=== PATIENT | male | born 1965 | race Caucasian/White ===

== ENCOUNTER 2020-09-22 12:37 | Emergency (ER) | payer MEDICARE, MEDICAID, SELFPAY ==
[2020-09-22 12:40] VITALS: BP 146/85; PULSE 61; RESP 18; TEMP 36.3; O2SAT 99; BMI 28.7
--- NOTE | 2020-09-22 12:54 | ECG_ITS ---
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 Measurements Intervals [place] Rate: 62 P: 9 PA: 124 QRS: 62 QRSD: 99 T: 51 QT: 456 QTc: 464 Interpretive Statements SINUS RHYTHM WITH SINUS ARRHYTHMIA PROLONGED QT INTERVAL Compared to ECG 03/28/2015 02:14:58 Prolonged QT interval now present Electronically Signed On 09-22-2020 18:44:39 GARMENT SUPERVISOR by Rosario Dove M.D. [email or web address] [facility] [email or web address]/store/NU/[id number] f
--- NOTE | 2020-09-22 12:54 | XRR_ITS ---
PROCEDURE INFORMATION: Exam: XR Chest, 1 View Exam date and time: 09/22/2020 1:10 PM Age: 54 years old Clinical indication: Cough and dyspnea and shortness of breath; Chest pain; Type not specified; Prior surgery; Surgery type: Back; Additional info: Dyspnea/cough TECHNIQUE: Imaging protocol: XR of the chest Views: 1 view. COMPARISON: CT chest wo con [id number] 08/24/2019 1:29 PM FINDINGS: Lungs: Hyperinflation and interstitial prominence. Pleural space: No pleural effusion. Heart/Mediastinum: No cardiomegaly. Bones/joints: Degenerative change . XR/XR chest 1V portable [id number] IMPRESSION: Hyperinflation and interstitial prominence.
--- NOTE | 2020-09-22 12:54 | CT_ITS ---
WS: [id number] CT ABDOMEN AND PELVIS WITH CONTRAST HISTORY: Right-sided abdominal pain and hemoptysis. TECHNIQUE: Imaging performed of the abdomen and pelvis with IV contrast. Single phase imaging of the abdomen. Coronal and sagittal reformats are submitted. All CT scans at [facility] use at least one of these dose optimization techniques: automated exposure control; mA and/or kV adjustment per patient size (includes targeted exams where dose is matched to clinical indication); or iterativ e reconstruction. IV CONTRAST: Omnipaque 300; 95 mL IV. Oral contrast: No DLP: 753.22 mGy.cm COMPARISON: 08/24/2019 Lower thorax: Lung bases are clear. Heart is normal size. Small hiatal hernia. Liver/biliary system: Normal size with no intrahepatic dilatation. Gallbladder: Normal. No gallstones or wall thickening. No pericholecystic fluid. Pancreas: Normal. Spleen: Normal. Adrenal glands: Normal. Right kidney: Normal. Left kidney: Normal. Aorta: Normal. Lymphadenopathy: None. Free fluid: None. GI tract: The appendix only partially visualized and normal. There is no evidence for appendicitis or acute inflammation. Mild constipation in the RIGHT colon. Numerous diverticula in the sigmoid colon. By CT no definite evidence for an acute diverticulitis. No free fluid. No abscess. There is some orestes y mild mucosal edema in the transverse colon beginning at the hepatic flexure. Abdominal wall: Unremarkable abdominal wall. No hernia. Pelvis: Normal. Bones: Severe degenerative disc disease at L4-5. No osteoblastic or osteolytic bone disease. Benign b [place] LEFT femur and LEFT ilium. CT/CT abdomen pelvis w con* [id number] IMPRESSION: 1. Mild mucosal thickening involving the transverse colon may represent early infectious colitis. 2. Sigmoid diverticulosis without evidence for acute diverticulitis. 3. The appendix is not completely visualized but there are no signs of appendi citis.
[2020-09-22 13:16] VITALS: BP 146/119; PULSE 69; RESP 18; O2SAT 100
[2020-09-22] MEDS: ondansetron 2 mg/ML SDV 2 mL 4 MG IVP (13:27)
[2020-09-22 13:32] LABS: Basophils % 0.3 %; Hematocrit 46.1 % (42.0-52.0); Hemoglobin 15.6 g/dL (11.7-16.6); Lymphocytes # 1.5 10^3/uL (0.8-4.8); Mean Corpuscular HGB Conc 33.8 g/dL (30.0-36.0); Mean Corpuscular Hemoglobin 27.9 pg (28.0-34.0); Mean Corpuscular Volume 82.5 fL (80-94); Mean Platelet Volume 10.9 fL (7.4-10.4); Monocytes # 0.6 10^3/uL (0.2-0.9); Monocytes % 5.3 %; Neutrophils # 9.35 10^3/uL (1.8-7.7); Neutrophils % 81.1 %; Nucleated Red Blood Cells % 0 %; Platelet Count 325 10^3/cmm (130-400); Red Blood Count 5.59 10^6/uL (4.1-5.3); Red Cell Distribution Width 14.6 % (12.1-15.1); White Blood Count 11.5 10^3/uL (4.0-10.0)
[2020-09-22 13:42] LABS: Alanine Aminotransferase 20 U/L (0-41); Albumin Level 4.9 g/dL (3.5-5.2); Alkaline Phosphatase 139 IU/L (40-130); Anion Gap 25.6 (5-19); Aspartate Amino Transferase 27 U/L (0-40); Blood Urea Nitrogen 20 mg/dL (6-20); Calcium 10.2 mg/dL (8.5-10.5); Carbon Dioxide 21 mmol/L (22-29); Chloride 96 mmol/L (98-107); Creatinine Clr Calc Pharmacy 88.9858; Glomerular Filtration Rate 70.3 mL/min (90-130); Glucose 164 mg/dL (65-115); Lipase 22 U/L (13-60); Magnesium 2.1 mg/dL (1.7-2.3); Osmolality Calculated 294 mOsm/kg (285-295); Potassium 3.6 mmol/L (3.5-5.1); Sodium 139 mmol/L (136-145); Total Bilirubin 0.9 mg/dL (0.15-1.2); Total Protein 7.9 g/dL (6.6-8.7); Troponin(5th) Baseline 8 ng/L (0-15)
[2020-09-22 13:56] LABS: Alcohol Level < 10 mg/dL (0-10)
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
[2020-09-22] MEDS: iohexol 300 mg/mL 100 mL Btl IV (14:42)
[2020-09-22 14:46] VITALS: BP 137/90; PULSE 73; RESP 19; O2SAT 100
--- NOTE | 2020-09-22 14:54 | ECG_ITS ---
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 Measurements Intervals [place] Rate: 61 P: 27 VT: 134 QRS: 48 QRSD: 97 T: 39 QT: 468 QTc: 473 Interpretive Statements SINUS RHYTHM WITH MARKED SINUS ARRHYTHMIA PROLONGED QT INTERVAL Compared to ECG 09/22/2020 13:03:46 No significant changes Electronically Signed On 09-22-2020 18:54:57 MAINTENANCE HELPER UTILITY ENGINEER by Rosario Dove M.D. [email or web address] [email or web address] [email or web address]/store/[id number]
[2020-09-22 15:00] VITALS: BP 155/81; PULSE 83; RESP 18; O2SAT 100
[2020-09-22] MEDS: promethazine 25 mg/mL SDV 1 mL IM (15:31)
[2020-09-22] MEDS: sodium chloride 0.9% 1,000 ML 999 ML IV (15:32)
[2020-09-22 16:13] LABS: Troponin 5 2HR 7.73 ng/L (0-15)
[2020-09-22 16:20] LABS: Troponin 5 2HR Delta -0.27 ABS# (0-10)
[2020-09-22 17:00] VITALS: BP 134/78; PULSE 66; RESP 18; O2SAT 100
[2020-09-22 17:35] VITALS: BP 139/70; PULSE 71; RESP 18; O2SAT 100
--- NOTE | 2020-09-22 17:39 | PC.NURSE ---
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
--- NOTE | 2020-09-23 11:10 | DCPLANNER ---
manager long term care had message to speak with patient about getting a primary care physician appointment. manager long term care spoke with patient and he stated that he was to have a follow up appointment with [facility]. manager long term care called [facility], spoke with Mary, a follow up appointment was scheduled for September at 2:[address] Dove. manager long term care called patient and gave patient the appointment information.
--- NOTE | 2020-10-09 14:04 | DCPLANNER ---
Patient had a follow up appointment scheduled for 10.02.20 - patient did attend appointment.
== END 2020-09-22 17:35 | disposition home or self-care (01) ==
PROVIDERS: Emergency Provider Family Medicine; Family Provider Family Medicine; PCP Family Medicine
DX: K29.20 Alcoholic gastritis without bleeding (principal); R94.31 Abnormal electrocardiogram [ECG] [EKG]; Z87.891 Personal history of nicotine dependence; Z79.899 Other long term (current) drug therapy
CPT/HCPCS: 12345; 36415; 71045; 74177; 80053; 80307; 83690; 83735; 84484; 85025; 93005; 96361; 96372; 96374; 99283; 99284; J2405; J2550; J7030; Q9967

== ENCOUNTER 2020-10-29 06:37 | Outpatient (CLI) | payer MEDICARE, MEDICAID, SELFPAY ==
--- NOTE | 2020-10-29 07:15 | US_ITS ---
WS: [id number] ULTRASOUND ABDOMEN LIMITED CLINICAL INFORMATION: RUQ PAIN COMPARISON: None. FINDINGS: Liver Size: Normal. Craniocaudal length: 16.0 cm. Echogenicity: Coarse Surface nodularity: None. Mass (size and location): None. Bile ducts Intrahepatic ducts: Normal. Common bile duct diameter: 0.3 cm. Gallbladder Normal. Gallstones: None. Gallbladder sludge: None. Gallbladder wall thickening: None. Pericholecystic fluid: None. Sonographic Shah sign: Absent. Pancreas Normal as visualized. Right kidney: Normal. Hydronephrosis: None. Size: 10.5 cm x 5.4 cm x 4.6 cm. Abdominal aorta and IVC Visualized portions are normal. Ascites: None. US/US gall bladder [id number] IMPRESSION: Mild diffuse fatty infiltration of the liver. Otherwise normal abdominal ultras ound.
== END 2020-10-29 06:38 | disposition home or self-care (01) ==
LOC: US 06:38
PROVIDERS: PCP Family Medicine; Visit Provider Surgery
DX: R10.11 Right upper quadrant pain (principal); K76.0 Fatty (change of) liver, not elsewhere classified
CPT/HCPCS: 76705

== ENCOUNTER 2021-01-12 11:31 | Outpatient (CLI) | payer MEDICARE, MEDICAID, SELFPAY ==
[2021-01-12 11:47] VITALS: BMI 28.7
--- NOTE | 2021-01-12 11:48 | ECG_ITS ---
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 Interpretive Statements NAME OF STUDY: TREADMILL STRESS ECHOCARDIOGRAM INDICATION: Chest Pain, PROCEDURE: At the baseline, the patient's blood pressure was 131/83 with a heart rate of 83. The baseline electrocardiogram showed normal sinus rhythm with normal ST-Ts. Poor R wave progression. The patient exercised for 11 minutes and 1 seconds on a standard Eduardo protocol. Patient attained a maximum heart rate of 143 beats per minute( 85 % of the maximum predicted heart rate) with a blood pressure at the peak exercise of 210/80 mm Hg. The EKG at the peak exercise revealed no significant changes. Patient did not have any chest pain or any significant EKG changes with the exercise During the recovery phase, there were no new changes. Blood pressure at the end of the recovery phase was 141/64 mm Hg with a heart rate of 89 per minute. Echocardiographic pictures were taken at the baseline, immediately following the peak exercise and during the recovery phase. CONCLUSION: 1. Normal EKG response to treadmill exercise 2. No exercise-induced chest pain or cardiac arrhythmia 3. Good exercise tolerance, attained a maximum of 13.5 METs 4. Please see separate report for the echocardiographic response to exercise. Electronically Signed On 01-15-2021 18:40:09 CDT by Rosario Dove M.D. [email or web address] Switch [id number]
[2021-01-12 12:25] VITALS: BP 141/64; PULSE 89
--- NOTE | 2021-01-12 12:45 | USCV_ITS ---
Kin Dove Age: 55 Gender: M : 1965 Exam Date: 01/12/2021 12:07 Ordering Phys: Rosario Dove MD ([email or web address]) Technologist: SEFERINO Exam Location: [facility] [place] Indication: cp Rhythm: Sinus Patient History: Cardiac Medications: Medications in past 24 hours: Contrast: Stress Results Protocol: Eduardo Total dose(mL): Exercise Duration (min:sec): 11:01 METS: 13.5 Resting HR: 83 Resting BP: 131 / 83 Peak HR: 143 Peak BP: 210 / 94 Max Predicted HR: 167 86 % Max Predicted HR Target HR: 142 Double Product: 71178 Stress Summary: The patient's target heart rate was achieved BP Response: Normal Reason for Termination: Test terminated after reaching target heart rate (85% max predicted) Cardiac Symptoms: Short of Breath ECG Analysis Resting ECG: Please see separate report Stress ECG: Please see separate report Arrhythmia: Please see separate report MEASUREMENTS (Male/Female) Normal Values FINDINGS The baseline echocardiogram will normal LV size and ejection fraction. Segmental wall motion analysis revealed no gross wall motion abnormalities. No intracardiac masses. No pericardial effusion. The peak exercise, there is good augmentation of all the segments with no exercise-induced wall motion normalities. During the recovery phase, there was no new changes. CONCLUSIONS 1. Normal echocardiographic response to treadmill exercise 2. No exercise-induced chest pain or cardiac arrhythmia. 3. No evidence of any coronary ischemia, based on the above findings Dr Rosario Dove MD [facility] (Electronically Signed) Final Date: 12 Jan 2021 20:19 S
== END 2021-01-12 11:32 | disposition home or self-care (01) ==
LOC: CDL 11:34
PROVIDERS: PCP Family Medicine; Visit Provider Internal Medicine Cardiovascular Disease
DX: R94.31 Abnormal electrocardiogram [ECG] [EKG] (principal)
CPT/HCPCS: 93017; 93350

== ENCOUNTER → 2023-01-03 08:39 | Outpatient (BNVA) | payer MEDICARE, MEDICAID, SELFPAY | PROVIDERS: PCP Family Medicine; Referring Provider Nurse Practitioner Family; Visit Provider Student in an Organized Health Care Education/Training Program | DX: M18.0 Bilateral primary osteoarthritis of first carpometacarpal joints (principal); S63.649A Sprain of metacarpophalangeal joint of unspecified thumb, initial encounter; X50.1XXA Overexertion from prolonged static or awkward postures, initial encounter | CPT/HCPCS: 20610; 73130; J3301; J3490 ==

== ENCOUNTER 2023-01-03 13:29 | Outpatient (CLI) | payer MEDICARE, MEDICAID, SELFPAY | END 2023-01-03 13:30 | disposition home or self-care (01) | LOC: SPT 13:29 | PROVIDERS: PCP Family Medicine; Visit Provider Student in an Organized Health Care Education/Training Program | DX: Z46.89 Encounter for fitting and adjustment of other specified devices (principal); M18.0 Bilateral primary osteoarthritis of first carpometacarpal joints | CPT/HCPCS: 97760; 99204; L3924 ==

== ENCOUNTER → 2023-02-21 08:24 | Outpatient (BNVA) | payer MEDICARE, MEDICAID, SELFPAY | PROVIDERS: PCP Family Medicine; Visit Provider Student in an Organized Health Care Education/Training Program | DX: M18.0 Bilateral primary osteoarthritis of first carpometacarpal joints (principal); S63.649A Sprain of metacarpophalangeal joint of unspecified thumb, initial encounter; X58.XXXA Exposure to other specified factors, initial encounter | CPT/HCPCS: 99213 ==

== ENCOUNTER → 2023-03-23 10:41 | Outpatient (BNVA) | payer MEDICARE, MEDICAID, SELFPAY | PROVIDERS: PCP Family Medicine; Referring Provider Registered Nurse; Visit Provider Specialist | DX: G24.3 Spasmodic torticollis (principal); R20.0 Anesthesia of skin; R20.2 Paresthesia of skin; Z98.1 Arthrodesis status; M43.12 Spondylolisthesis, cervical region | CPT/HCPCS: 99204 ==

== ENCOUNTER → 2023-04-07 09:23 | Outpatient (BNVA) | payer MEDICARE, MEDICAID, SELFPAY | PROVIDERS: PCP Family Medicine; Visit Provider Student in an Organized Health Care Education/Training Program | DX: M18.0 Bilateral primary osteoarthritis of first carpometacarpal joints (principal) | CPT/HCPCS: 20600; 99213; J3301; J3490 ==

== ENCOUNTER 2023-04-14 13:24 | Emergency (ER) | payer MEDICARE, MEDICAID, SELFPAY ==
--- NOTE | 2023-04-14 13:29 | XRR_ITS ---
PROCEDURE INFORMATION: Exam: XR Chest Exam date and time: 04/14/2023 1:37 PM Age: 57 years old Clinical indication: Pain; Other: Unspecified; Additional info: Cp TECHNIQUE: Imaging protocol: Radiologic exam of the chest. Views: 1 view. COMPARISON: CR XR chest 1V portable [id number] 09/22/2020 1:05 PM, chest x-ray October [address] chest August 2019 FINDINGS: Lungs: 2 cm oval-shaped shaped density projecting over the left mid lung zone and in between the posterior aspect of the left 6th and 7th ribs unchanged from February 2018 and shown on earlier CT to be secondary to overlying bony exostosis arising from the inferior aspect left 6 rib.. No consolidation. Pleural spaces: Unremarkable. No pleural effusion. No pneumothorax. Heart/Mediastinum: Unremarkable. No cardiomegaly. Bones/joints: Otherwise unremarkable. No acute bony abnormalities. XR/XR chest 1V portable [id number] IMPRESSION: Stable chest. No active disease.
--- NOTE | 2023-04-14 13:30 | ECG_ITS ---
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 Measurements Intervals [place] Rate: 88 P: 46 KS: 128 QRS: 35 QRSD: 95 T: 59 QT: 345 QTc: 418 Interpretive Statements SINUS RHYTHM POSSIBLE LEFT ATRIAL ENLARGEMENT [-0.1mV P-WAVE IN V1/V2] Compared to ECG 09/22/2020 16:18:00 Sinus arrhythmia no longer present Prolonged QT interval no longer present Electronically Signed On 04-15-2023 9:26:31 CDT by John Vásquez M.D. [id number]
[2023-04-14 13:33] VITALS: BP 151/92; PULSE 97; RESP 17; O2SAT 97
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
[2023-04-14 14:47] LABS: Basophils % 0.4 %; Eosinophils # 0.1 10^3/uL (0.0-0.8); Eosinophils % 0.6 %; Hematocrit 47.5 % (42.0-52.0); Hemoglobin 16.2 g/dL (11.7-16.6); Lymphocytes # 2.2 10^3/uL (0.8-4.8); Lymphocytes % 22.2 %; Mean Corpuscular HGB Conc 34.1 g/dL (30.0-36.0); Mean Platelet Volume 9.8 fL (7.4-10.4); Monocytes % 10.4 %; Neutrophils # 6.47 10^3/uL (1.8-7.7); Neutrophils % 66.1 %; Nucleated Red Blood Cells % 0 %; Platelet Count 333 10^3/cmm (130-400); Red Blood Count 5.59 10^6/uL (4.1-5.3); Red Cell Distribution Width 14.8 % (12.1-15.1); White Blood Count 9.8 10^3/uL (4.0-10.0)
[2023-04-14 14:58] LABS: INR 1.03 (0.8-1.2)
[2023-04-14 15:02] LABS: Troponin(5th) Baseline 9 ng/L (0-15)
[2023-04-14 15:03] LABS: Alanine Aminotransferase 18 U/L (0-41); Albumin Level 4.9 g/dL (3.5-5.2); Alkaline Phosphatase 122 U/L (40-130); Aspartate Amino Transferase 26 U/L (0-40); Blood Urea Nitrogen 20 mg/dL (6-20); Calcium 9.4 mg/dL (8.5-10.5); Carbon Dioxide 19 mmol/L (22-29); Chloride 99 mmol/L (98-107); Globulin 2.7 g/dL (1.3-4.6); Glomerular Filtration Rate 77.6 mL/min (90-130); Glucose 63 mg/dL (65-115); Osmolality Calculated 281 mOsm/kg (285-295); Sodium 135 mmol/L (136-145); Total Bilirubin 0.9 mg/dL (0.15-1.2); Total Protein 7.6 g/dL (6.6-8.7)
[2023-04-14 15:04] VITALS: BP 122/95; PULSE 95; RESP 16; O2SAT 97
[2023-04-14 15:07] LABS: Anion Gap 21.6 (5-19); Potassium 4.6 mmol/L (3.5-5.1)
--- NOTE | 2023-04-14 15:30 | ECG_ITS ---
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 Measurements Intervals [place] Rate: 93 P: 17 VT: 108 QRS: 20 QRSD: 92 T: 41 QT: 343 QTc: 428 Interpretive Statements SINUS RHYTHM WITH SHORT VT INTERVAL Compared to ECG 04/14/2023 13:40:09 Short VT interval now present Electronically Signed On 04-15-2023 9:30:01 CDT by John Vásquez M.D. [id number]
[2023-04-14 16:39] LABS: Troponin 5 2HR 8.88 ng/L (0-15); Troponin 5 2HR Delta -0.12 ABS# (0-10)
--- NOTE | 2023-04-14 17:10 | PC.NURSE ---
fsbs is 115
[2023-04-14 17:11] LABS: Glucose Point of Care 115 mg/dL (70-110)
--- NOTE | 2023-04-15 07:45 | DCPLANNER ---
Addendum entered by Emma Miller 04/21/23 10:33: Patient attended follow up appointment scheduled with [facility] care Addendum entered by Emma Miller 04/20/23 10:45: Patient has a follow up appointment scheduled for Tuesday, April 20, 2023 at 1:[address] Solis at [facility]. Original Note: site manager had message to schedule a follow up appointment for patient with cardiology. site manager sent patients information to the front office staff at [facility]. Patients information will be printed and reviewed. Clinic will call patient with appointment information.
== END 2023-04-14 17:17 | disposition home or self-care (01) ==
PROVIDERS: Emergency Medicine; Emergency Provider Nurse Practitioner Family; PCP Family Medicine
DX: R07.9 Chest pain, unspecified (principal); Z87.891 Personal history of nicotine dependence
CPT/HCPCS: 36415; 36416; 71045; 80053; 82962; 84484; 85025; 85610; 93005; 99285

== ENCOUNTER → 2023-04-20 12:23 | Outpatient (BNVA) | payer MEDICARE, MEDICAID, SELFPAY | PROVIDERS: PCP Family Medicine; Visit Provider Internal Medicine Cardiovascular Disease | DX: R07.9 Chest pain, unspecified (principal); Z98.890 Other specified postprocedural states; Z87.891 Personal history of nicotine dependence | CPT/HCPCS: 99213 ==

== ENCOUNTER 2023-05-11 12:28 | Outpatient (CLI) | payer MEDICARE, MEDICAID, SELFPAY ==
--- NOTE | 2023-05-11 | ECG_ITS ---
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 Interpretive Statements NAME OF STUDY: TREADMILL STRESS ECHOCARDIOGRAM INDICATION: Chest Pain, PROCEDURE: At the baseline, the patient's blood pressure was 124/84 with a heart rate of 78. The baseline electrocardiogram showed normal sinus rhythm with normal ST-Ts.. The patient exercised for 8 minutes on a standard Eduardo protocol. Patient attained a maximum heart rate of 143 beats per minute(86% of the maximum predicted heart rate) with a blood pressure at the peak exercise of 166/93 mm Hg. The EKG at the peak exercise revealed no significant changes. Patient did not have any chest pain or any significant cardiac arrhythmias with the exercise During the recovery phase, there were no new changes. Blood pressure at the end of the recovery phase was 134/76 mm Hg with a heart rate of 84 per minute. CONCLUSION: 1. Normal EKG response to treadmill exercise 2. No exercise-induced chest pain or cardiac arrhythmia 3. Slightly impaired exercise tolerance, attained a maximum of seven-point METs Electronically Signed On 05-13-2023 10:00:27 CDT by Rosario Dove M.D. [id number]
[2023-05-11 12:59] VITALS: BMI 27.1
--- NOTE | 2023-05-11 13:03 | USCV_ITS ---
Stress Echo Kin Dove Age: 57 Gender: M : 1965 Exam Date: 05/11/2023 13:20 Ordering Phys: Bradley Solis MD ([email or web address]) Technologist: Rene Coker Exam Location: [facility] [place] Indication: cp Rhythm: Sinus Patient History: cp Cardiac Medications: Medications in past 24 hours: Contrast: Stress Results Protocol: Eduardo Total dose(mL): Exercise Duration (min:sec): 8:00 METS: 10.2 Resting HR: 70 Resting BP: 124 / 84 Peak HR: 143 Peak BP: 181 / 93 Max Predicted HR: 165 87 % Max Predicted HR Target HR: 140 Double Product: 10688 Stress Summary: The patient's target heart rate was achieved BP Response: Normal Reason for Termination: Reached target heart rate or work-load Cardiac Symptoms: None ECG Analysis Resting ECG: Please see separate report Stress ECG: Please see separate report Arrhythmia: Please see separate report MEASUREMENTS (Male/Female) Normal Values FINDINGS Baseline echocardiogram revealed normal LV size and ejection fraction. Segmental wall motion analysis revealed no gross wall motion normalities. No pericardial effusion. Minimally thickened anterior mitral leaflet. Aortic root appeared to be of normal size. With the peak exercise, there was good augmentation of all the segments with no exercise-induced wall motion normalities. During the recovery phase, there is no new changes CONCLUSIONS 1. Normal echocardiographic response to treadmill exercise. 2. Low probability for coronary ischemia, based on the above findings 3. For the EKG response to exercise, please see separate report Dr Rosario Dove MD [facility] (Electronically Signed) Final Date: 12 May 2023 08:55 S
[2023-05-11 13:38] VITALS: BP 135/76; PULSE 80
== END 2023-05-11 12:29 | disposition home or self-care (01) ==
LOC: CDL 12:30
PROVIDERS: PCP Family Medicine; Visit Provider Internal Medicine Cardiovascular Disease
DX: R07.9 Chest pain, unspecified (principal)
CPT/HCPCS: 93017; 93350

== ENCOUNTER → 2023-07-14 07:35 | Outpatient (BNVA) | payer MEDICARE, MEDICAID, SELFPAY | PROVIDERS: PCP Family Medicine; Visit Provider Student in an Organized Health Care Education/Training Program | DX: M18.0 Bilateral primary osteoarthritis of first carpometacarpal joints (principal) | CPT/HCPCS: 99212; 99213 ==

== ENCOUNTER → 2023-09-22 13:41 | Outpatient (BNVA) | payer MEDICARE, MEDICAID, SELFPAY | PROVIDERS: PCP Family Medicine; Visit Provider Physician Assistant | DX: G56.21 Lesion of ulnar nerve, right upper limb (principal); G56.03 Carpal tunnel syndrome, bilateral upper limbs; M18.0 Bilateral primary osteoarthritis of first carpometacarpal joints | CPT/HCPCS: 20600; 99213; J3301; J3490 ==

== ENCOUNTER 2023-11-30 10:28 | Emergency (ER) | payer MEDICARE, MEDICAID, SELFPAY ==
[2023-11-30 10:45] VITALS: BP 141/89; PULSE 76; TEMP 36.9; O2SAT 99; BMI 25.1
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
[2023-11-30 11:29] VITALS: BP 128/87; PULSE 76; RESP 14; O2SAT 98
== END 2023-11-30 11:30 | disposition home or self-care (01) ==
PROVIDERS: Emergency Provider Emergency Medicine; PCP Family Medicine
DX: L02.31 Cutaneous abscess of buttock (principal); Z87.891 Personal history of nicotine dependence
CPT/HCPCS: 10060; 99283

== ENCOUNTER → 2024-01-19 13:49 | Outpatient (BNVA) | payer MEDICARE, MEDICAID, SELFPAY | PROVIDERS: PCP Family Medicine; Visit Provider Student in an Organized Health Care Education/Training Program | DX: M18.0 Bilateral primary osteoarthritis of first carpometacarpal joints (principal) | CPT/HCPCS: 99213 ==

== ENCOUNTER → 2024-04-16 10:29 | Outpatient (BNVA) | payer MEDICARE, MEDICAID, SELFPAY | PROVIDERS: PCP Family Medicine; Visit Provider Surgery | DX: K21.9 Gastro-esophageal reflux disease without esophagitis (principal); Z86.010 Personal history of colon polyps; K92.2 Gastrointestinal hemorrhage, unspecified | CPT/HCPCS: 99204 ==

== ENCOUNTER → 2024-05-01 07:58 | Outpatient (BNVA) | payer MEDICARE, SELFPAY | PROVIDERS: PCP Family Medicine; Visit Provider Student in an Organized Health Care Education/Training Program | DX: M18.0 Bilateral primary osteoarthritis of first carpometacarpal joints (principal) | CPT/HCPCS: 20600; 99213; J3301; J3490 ==

== ENCOUNTER 2024-06-06 08:38 | Day surgery (SDC) | payer MEDICARE, SELFPAY ==
[2024-06-06 09:00] VITALS: BP 125/101; PULSE 108; RESP 18; TEMP 36.1; O2SAT 98
[2024-06-06 09:11] VITALS: BMI 25.1
[2024-06-06] MEDS: sodium chloride 0.9% 1,000 ML 30 ML IV (09:14)
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
[2024-06-06 10:59] VITALS: BP 102/76; PULSE 96; RESP 18; TEMP 36.5; O2SAT 94
[2024-06-06 11:04] VITALS: BP 107/82; PULSE 92; RESP 18; O2SAT 97
--- NOTE | 2024-06-06 11:13 | ANE.PACU2 ---
Inpatient post-anesthesia follow up: Airway intact: Yes Vital signs: Temperature 97.7 F Pulse Rate 92 Respiratory Rate 18 Blood Pressure 107/82 Pulse Oximetry 97 Oxygen Delivery Me thod Room Air Oxygen Flow Rate Fraction of Inspir ed Oxygen Hydration adequate: Yes Nausea and vomiting: No Pain level: 1 Mental status: Baseline
[2024-06-06 11:14] VITALS: BP 104/79; PULSE 89; RESP 18; O2SAT 95
== END 2024-06-06 11:35 | disposition home or self-care (01) ==
PROVIDERS: PCP Family Medicine; Visit Provider Surgery
PROC: 0DJ08ZZ Inspection of Upper Intestinal Tract, Via Natural or Artificial Opening Endoscopic (ICD-10-PCS; CPT 43235; principal; 2024-06-06 10:00)
PROC: 0DJD8ZZ Inspection of Lower Intestinal Tract, Via Natural or Artificial Opening Endoscopic (ICD-10-PCS; CPT 45378; 2024-06-06 10:00)
DX: K92.2 Gastrointestinal hemorrhage, unspecified (principal); K20.90 Esophagitis, unspecified without bleeding; D12.2 Benign neoplasm of ascending colon; K44.9 Diaphragmatic hernia without obstruction or gangrene; K64.8 Other hemorrhoids; K21.9 Gastro-esophageal reflux disease without esophagitis; Z86.0100 Personal history of colon polyps, unspecified; F41.9 Anxiety disorder, unspecified; Z87.891 Personal history of nicotine dependence; J44.9 Chronic obstructive pulmonary disease, unspecified
CPT/HCPCS: 43239; 45385; 88305; J2704; J7030

== ENCOUNTER → 2024-06-22 10:46 | Outpatient (BNVA) | payer MEDICARE, SELFPAY | PROVIDERS: PCP Family Medicine; Visit Provider Surgery | DX: Z09 Encounter for follow-up examination after completed treatment for conditions other than malignant neoplasm (principal); K22.70 Barrett's esophagus without dysplasia; Q40.2 Other specified congenital malformations of stomach; K21.9 Gastro-esophageal reflux disease without esophagitis; K92.2 Gastrointestinal hemorrhage, unspecified; D37.4 Neoplasm of uncertain behavior of colon | CPT/HCPCS: 99214 ==

== ENCOUNTER → 2024-08-07 08:00 | Outpatient (BNVA) | payer MEDICARE, SELFPAY | PROVIDERS: PCP Family Medicine; Visit Provider Student in an Organized Health Care Education/Training Program | DX: M18.0 Bilateral primary osteoarthritis of first carpometacarpal joints (principal); M06.00 Rheumatoid arthritis without rheumatoid factor, unspecified site; Z79.899 Other long term (current) drug therapy; Z98.1 Arthrodesis status | CPT/HCPCS: 20600; 36415; 80076; 82306; 82565; 83520; 85025; 85651; 86140; 86200; 86431; 99204; 99213; J3301; J3490 ==

== ENCOUNTER → 2024-12-19 08:46 | Outpatient (BNVA) | payer MEDICARE, SELFPAY | PROVIDERS: PCP Family Medicine; Visit Provider Student in an Organized Health Care Education/Training Program | DX: M18.0 Bilateral primary osteoarthritis of first carpometacarpal joints (principal) | CPT/HCPCS: 20600; 99213; J3301; J3490 ==

== ENCOUNTER → 2025-03-14 08:10 | Outpatient (BNVA) | payer MEDICARE, SELFPAY | PROVIDERS: PCP Family Medicine; Visit Provider Orthopaedic Surgery | DX: M50.022 Cervical disc disorder at C5-C6 level with myelopathy (principal) | CPT/HCPCS: 72050; 99203 ==

== ENCOUNTER 2025-03-21 07:25 | Outpatient (CLI) | payer MEDICARE, MEDICAID, SELFPAY ==
--- NOTE | 2025-03-21 08:00 | MR_ITS ---
WS: [id number] MRI CERVICAL SPINE NONCONTRAST HISTORY: Neck Pain COMPARISON: 06/28/2019 Technique: Multiplanar, multisequence noncontrast imaging of the cervical spine. Increase in cervical lordosis. Prior anterior cervical fusion with interbody spacer at C5-6. Progression of degenerative disc disease at C4-5 since the prior study. There is new marrow edema along the inferior endplate of C4. Additional progression of disc space narrowing at C6-7. New edema within the C6-7 disc. Craniocervical junction, C1 and C2 relationship, odontoid process and soft tissues are normal. C2-C3: Normal. C3-C4: Annular disc bulging with osteophytic ridging. Mild effacement of ventral CSF and mild RIGHT foraminal stenosis and facet arthritis. No obvious change since the prior study. C4-C5: Diffuse osteophytic ridging with mild disc bulging and facet arthritis. Bilateral foraminal disc osteophyte complexes resulting in moderate foraminal stenosis, RIGHT greater than LEFT. Mild central stenosis. Probably no significant change as compared to the prior exam. C5-C6: Mild bilateral foraminal stenosis. No change. C6-C7: Diffuse osteophytic ridging and disc bulging with facet arthritis. Small central disc protrusion. Mild LEFT and moderate RIGHT foraminal stenosis and mild central stenosis. C7-T1: No stenosis. Small central disc osteophyte at T2-3 encroaching upon the central canal. Similar to the prior study from 2019. MR/MR cervical spin wo con* [id number] IMPRESSION: 1. Status post anterior cervical fusion with interbody spacer at C5-6 appears intact. 2. New marrow edema in the inferior endplate of C4. Mild progression of degene rative disc space narrowing at C4-5 and C6-7 compared to the prior study. 3. C4-5: Bilateral foraminal disc osteophyte complexes resulting in moderate f oraminal stenosis. Mild central stenosis. Minimal if any change since the prior study. 4. Moderate RIGHT and mild LEFT foraminal stenosis and mild central stenosis a t C6-7. No change. 5. Mild RIGHT foraminal stenosis at C3-4. 6. Normal signal within the cord.
== END 2025-03-21 07:26 | disposition home or self-care (01) ==
LOC: RAD 07:26
PROVIDERS: PCP Family Medicine; Visit Provider Orthopaedic Surgery
DX: M48.02 Spinal stenosis, cervical region (principal); M50.321 Other cervical disc degeneration at C4-C5 level; M50.323 Other cervical disc degeneration at C6-C7 level; M25.78 Osteophyte, vertebrae; Z98.1 Arthrodesis status
CPT/HCPCS: 72141

== ENCOUNTER → 2025-04-11 12:50 | Outpatient (BNVA) | payer MEDICARE, MEDICAID, SELFPAY | PROVIDERS: PCP Family Medicine; Visit Provider Orthopaedic Surgery | DX: M50.021 Cervical disc disorder at C4-C5 level with myelopathy (principal); M43.12 Spondylolisthesis, cervical region; Z09 Encounter for follow-up examination after completed treatment for conditions other than malignant neoplasm | CPT/HCPCS: 99214 ==

== ENCOUNTER → 2025-04-17 13:27 | Outpatient (BNVA) | payer MEDICARE, MEDICAID, SELFPAY | PROVIDERS: PCP Family Medicine; Visit Provider Student in an Organized Health Care Education/Training Program | DX: M18.0 Bilateral primary osteoarthritis of first carpometacarpal joints (principal) | CPT/HCPCS: 20600; 99213; J3301; J3490 ==

== ENCOUNTER → 2025-04-23 12:45 | Outpatient (BNVA) | payer MEDICARE, MEDICAID, SELFPAY | PROVIDERS: PCP Family Medicine; Referring Provider Orthopaedic Surgery; Visit Provider Nurse Practitioner Family | DX: M54.2 Cervicalgia (principal); Z87.891 Personal history of nicotine dependence | CPT/HCPCS: 99214 ==

== ENCOUNTER → 2025-05-01 13:08 | Outpatient (BNVA) | payer MEDICARE, MEDICAID, SELFPAY | PROVIDERS: PCP Family Medicine; Visit Provider Anesthesiology Pain Medicine | DX: M54.81 Occipital neuralgia (principal); M43.12 Spondylolisthesis, cervical region | CPT/HCPCS: 64405; 99214; J1010; J3490 ==

== ENCOUNTER → 2025-07-23 15:11 | Outpatient (BNVA) | payer MEDICARE, MEDICAID, SELFPAY | PROVIDERS: PCP Family Medicine; Visit Provider Student in an Organized Health Care Education/Training Program | DX: M18.0 Bilateral primary osteoarthritis of first carpometacarpal joints (principal) | CPT/HCPCS: 73130; 99214 ==

== ENCOUNTER → 2025-07-25 14:19 | Outpatient (BNVA) | payer MEDICARE, MEDICAID, SELFPAY | PROVIDERS: PCP Family Medicine; Visit Provider Orthopaedic Surgery | DX: Z98.1 Arthrodesis status (principal) | CPT/HCPCS: 99213 ==

== ENCOUNTER → 2025-08-05 12:27 | Outpatient (BNVA) | payer MEDICARE, MEDICAID, SELFPAY | PROVIDERS: PCP Family Medicine; Visit Provider Nurse Practitioner Family | DX: M48.02 Spinal stenosis, cervical region (principal) | CPT/HCPCS: 99214 ==